=== PATIENT | female | born 1955 | race Caucasian/White ===

== ENCOUNTER 2019-10-02 12:19 | Day surgery (SDC) | payer BC ==
[2019-10-02] MEDS ORDERED: PROPOFOL 10 MG/ML VIAL IV ONE (12:20)
[2019-10-02] MEDS ORDERED: LIDOCAINE 2% MDV (20MG/ML) 20ML VIAL IV ONE (12:20)
--- NOTE | 2019-10-03 06:01 | Operative Note ---
OPERATION: ESOPHAGOGASTRODUODENOSCOPY with multiple biopsies. INDICATION: Chronic gastroesophageal reflux disease with pyrosis and nocturnal regurgitation. She was previously diagnosed by Dr. Lm Hurley with "Figueroa's esophagus" from prior examination in [place] years ago, she claims. She returns at this time for reevaluation. She continues to have breakthrough symptoms despite taking Nexium 40 mg daily. ANESTHESIA: Intravenous sedation was administered by the department of anesthesiology and included Diprivan titrated to effect. PROCEDURE: Following informed consent from this alert individual, including a discussion of the risks and benefits of the procedure and an opportunity for the patient to ask questions, the patient was in the left lateral decubitus position. The Olympus [id number] video endoscope was inserted into the esophagus without resistance. The proximal esophagus had a normal appearance with normal folds and distensibility. The mid esophagus likewise was free from changes. The distal esophageal segment demonstrated slightly irregular GE junction without ulcerations, erosions, or raised mucosa. Narrow band imaging was not available on this endoscope for further evaluation. There was a small 1-2 cm hiatal hernia noted which was free from mucosal changes. The subdiaphragmatic stomach was entered and found to be unremarkable except for some linear antral gastritis which was relatively mild. The pylorus was patent. The duodenal bulb, sweep and descending duodenum were examined in a serial fashion and found to be normal. The endoscope was then drawn back into the body of the stomach. Retroflexion accomplished following air insufflation failed to demonstrate additional changes. Again a small hiatal hernia was noted. The endoscope was then straightened. Multiple biopsies were taken from the stomach to assess for Helicobacter pylori and check histology. A second set of biopsies was taken from the gastroesophageal junction at the area of possible Figueroa's epithelium. After biopsy, endoscope was then withdrawn back through a normal mid and proximal esophagus and removed from the patient. She tolerated the procedure well and was returned to the recovery area in stable condition. IMPRESSION: 1. Irregular Z line with probable small-segment Figueroa's esophagus. Biopsies taken and pending. 2. Small 1-2 cm hiatal hernia. 3. Mild linear antral gastritis. Biopsies taken. RECOMMENDATION: The patient will continue with Nexium daily. She might need a second dose of acid blockade in the form of Pepcid or, if needed, another dose of Nexium at night. Further recommendations may be forthcoming pending results of biopsy obtained today. Followup will also be with Lee Beard DO. As always, thank you for allowing me to participate in the care of your patient. ELIZ
== END 2019-10-02 15:00 | disposition home or self-care (01) ==
LOC: HOP 12:19
PROVIDERS: ATTEND Internal Medicine Gastroenterology
DX: K21.9 Gastro-esophageal reflux disease without esophagitis (principal); R12 Heartburn; K31.89 Other diseases of stomach and duodenum; K44.9 Diaphragmatic hernia without obstruction or gangrene; K29.60 Other gastritis without bleeding; I10 Essential (primary) hypertension; E78.00 Pure hypercholesterolemia, unspecified; J45.909 Unspecified asthma, uncomplicated